=== PATIENT | male | born 1960 | race Caucasian/White ===

== ENCOUNTER 2023-03-21 08:47 | Outpatient (CLI) | payer MEDICAID, SELFPAY ==
--- NOTE | 2023-03-21 09:09 | USCV_ITS ---
Leoncio Fox Age: 62 Gender: M : 1960 Exam Date: 03/21/2023 09:20 Ordering Phys: Leticia Dobbs Technologist: [place] [facility] [place]ication: poor pulses RIGHT LEFT Brachial 122.00 mmHg Brachial 122.00 mmHg Pressure (mmHg) Waveform Pressure (mmHg) Waveform 147.00 [employer] 132.00 127.00 DPA 124.00 1.20 Ankle/Brachial Index 1.00 126.00 Pre-Exercise Toe Pressure 127.00 1.00 Pre-Exercise Toe/Brachial Index 1.00 FINDINGS Normal ankle pressures bilaterally Resting ARON 1.0 bilaterally CONCLUSIONS No evidence of any significant arterial obstruction, based on the above findings. Dr Carlos Al MD [facility] (Electronically Signed) Final Date: 25 Mar 2023 00:20 S
== END 2023-03-21 08:48 | disposition home or self-care (01) ==
LOC: RAD 08:53
PROVIDERS: PCP Physician Assistant; Visit Provider Physician Assistant
DX: R09.89 Other specified symptoms and signs involving the circulatory and respiratory systems (principal)
CPT/HCPCS: 93922

== ENCOUNTER → 2023-06-12 08:00 | Outpatient (BNVA) | payer MEDICAID, SELFPAY | PROVIDERS: PCP Physician Assistant; Referring Provider Physician Assistant; Visit Provider Psychiatry & Neurology Neurology | DX: R25.1 Tremor, unspecified (principal) | CPT/HCPCS: 36415; 82306; 82607; 82746; 83735; 83921; 84439; 84443; 84481 ==

== ENCOUNTER 2023-06-24 09:09 | Outpatient (CLI) | payer MEDICAID, SELFPAY ==
--- NOTE | 2023-06-24 10:00 | USCV_ITS ---
Leoncio Fox Age: 62 Gender: M : 1960 Exam Date: 06/24/2023 09:33 Ordering Phys: Shiv Lechuga MD Technologist: Reid Verde Exam Location: [facility] [place] Indication: tremor Risk Factors: Previous Vascular Surgery: Right Brachial BP: / Left Brachial BP: / Right Left Velocity (cm/s) Spectral Plaque Velocity (cm/s) Spectral Plaque Syst/Diast Broadening Syst/Diast Broadening 106.90/13.20 Prox CCA 118.30/ 18.40 108.10/15.40 Mid CCA 105.20/ 17.10 77.80/ 10.30 Distal CCA 91.40 / 21.40 70.90/ 14.90 Prox ICA 79.20 / 17.90 58.20/ 15.60 Mid ICA 55.40 / 15.70 73.60/ 19.10 Distal ICA 55.90 / 14.80 136.70 ECA 132.80 0.54 ICA/CCA 0.53 Antegrade Vertebral Antegrade 31.10/ 5.40 cm/s 48.60/ 13.90 cm/s Tri Subclavian Tri 88.60 97.40 CONCLUSIONS Right ICA stenosis <50%. Mild atheromatous plaque right carotid bulb/ICA. Left ICA stenosis <50%. Mild atheromatous plaque left carotid bulb/ICA. Normal antegrade Doppler flow noted in the right vertebral artery. Normal antegrade Doppler flow noted in the left vertebral artery. Woo Montaño MD (Electronically Signed) Final Date: 24 June 2023 09:59 S
--- NOTE | 2023-06-24 11:00 | MR_ITS ---
WS: [id number] MRI HEAD WITH CONTRAST TECHNIQUE: Sagittal T1, T2 axial, T2 axial FLAIR, axial susceptibility weighted imaging, axial diffus ion weighted images, and coronal T2 images were obtained. Pre and post-T1 axial and post T1 coronal i mages. ADC and FSPGR images. CLINICAL INFORMATION: R25.1 - Tremor, unspecified COMPARISON: None. FINDINGS: No evidence of restricted diffusion to suggest acute ischemia. Ventricular system and basal cisterns are patent. No hemosiderin on the susceptibility weighted images. Moderate small vessel changes with moderate parenchymal volume loss. Chronic lacunar infarcts in the left greater than right cerebellum. Opacification left mastoid air cells. Paranasal sinuses are well aerated. Normal posterior nasophary nx. Normal parapharyngeal fat. Small retention cyst or polyp right maxillary sinus measuring 11 mm. Normal optic chiasm and pituitary infundibulum. Mild symmetric atrophy temporal lobes hippocampal for mations. No abnormal intracranial enhancement. Normal dural venous sinuses. IMPRESSION: 1. No evidence of restricted diffusion to suggest acute ischemia. 2. Moderate small vessel changes with moderate parenchymal volume loss. 3. Multiple chronic lacunar infarcts in the cerebellum bilaterally left greater than right. 4. Mild symmetric atrophy temporal lobes and hippocampal formations 5. No abnormal gadolinium enhancement. 6. 11 mm retention cyst or polyp right infraorbital maxillary sinus. 7. No hemosiderin on the susceptibility weighted images. 8. Opacification left mastoid air cells.
[2023-06-24] MEDS: gadobenate dimeglumine 20 mL vial IV (11:26)
== END 2023-06-24 09:10 | disposition home or self-care (01) ==
PROVIDERS: PCP Physician Assistant; Visit Provider Psychiatry & Neurology Neurology
DX: R25.1 Tremor, unspecified (principal); G31.9 Degenerative disease of nervous system, unspecified; J34.1 Cyst and mucocele of nose and nasal sinus
CPT/HCPCS: 36415; 70553; 82306; 82607; 82746; 83735; 83921; 84439; 84443; 84481; 93880; A9577